=== PATIENT | male | born 1985 | race Caucasian/White ===

== ENCOUNTER 2020-04-29 15:37 | Emergency (ER) | payer OTHER ==
[~2020-04-29] VITALS: Ht 157.5 cm; Wt 48.5 kg
[~2020-04-29 15:37] MED LIST: HYDROCODONE-AC1 EAC5 PO; LEVE500; ONDA4ODT SL
[2020-04-29 16:39] LABS: BASOPHILS ABSOLUTE AUTO 0.03 K/mm3 (0.00-0.23); BASOPHILS PERCENT AUTO 1 % (0-2); EOSINOPHILS ABSOLUTE AUTO 0.02 K/mm3 (0.00-0.68); EOSINOPHILS PERCENT AUTO 0 % (0-6); Hematocrit 37.6 % (37.0-53.0); Hemoglobin 11.5 g/dL (13.5-17.5); IMMATURE GRAN PERCENT AUTO 0 % (0-1); LYMPHOCYTES ABSOLUTE AUTO 2.51 K/mm3 (0.84-5.20); LYMPHOCYTES PERCENT AUTO 56 % (21-46); MONOCYTES ABSOLUTE AUTO 0.21 K/mm3 (0.16-1.47); MONOCYTES PERCENT AUTO 5 % (4-13); Mean Corpuscular HGB 25.1 pg (26.0-34.0); Mean Corpuscular HGB Conc 30.6 g/dL (31.5-36.5); Mean Corpuscular Volume 82 fL (80-100); Mean Platelet Volume 9.9 fL (9.1-12.4); NEUTROPHILS PERCENT AUTO 38 % (41-73); Platelet Count 256 K/mm3 (150-400); RDW Coefficient Variation 17.5 % (11.7-14.2); RDW Standard Deviation 51.7 fL (35.1-46.3); Red Blood Cell Count 4.58 M/mm3 (4.30-5.90); White Blood Cell Count 4.47 K/mm3 (4.00-11.30)
[2020-04-29] MEDS ORDERED: VITAMIN B-1100 M1 PO (17:04)
[2020-04-29] MEDS ORDERED: Omeprazole20 M1 PO (17:04)
[2020-04-29] MEDS ORDERED: FOLI1 PO (17:04)
[2020-04-29] MEDS ORDERED: ZYPREXA2.5 MG PO (17:05)
[2020-04-29] MEDS ORDERED: OLAN5 PO (17:05)
[2020-04-29] MEDS ORDERED: PARO20 PO (17:06)
[2020-04-29] MEDS ORDERED: TRAZ50 PO (17:06)
[2020-04-29] MEDS ORDERED: REMERON15 MG PO (17:06)
[2020-04-29 17:10] LABS: Alanine Aminotransfer (ALT/SGP 21 U/L (12-78); Albumin, Blood 3.5 g/dL (3.4-5.0); Albumin/Globulin Ratio 0.8 (0.8-1.8); Alk Phos 66 U/L (50-136); Anion Gap 9 mmol/L (6-16); Aspartate Aminotrans (AST/SGOT 21 U/L (12-37); Bilirubin, Total 0.3 mg/dL (0.1-1.0); Blood Urea Nitrogen 12 mg/dL (8-24); Bun/Creatinine Ratio 17.3 (12.0-20.0); CO2, Blood 26 mmol/L (21-32); Calcium, Blood 8.4 mg/dL (8.5-10.1); Chloride, Blood 110 mmol/L (98-108); Creatinine, Blood 0.69 mg/dL (0.60-1.20); Ethanol (Alcohol), Blood, Med 220 mg/dL; Globulin, Blood 4.4 g/dL (2.2-4.0); Glomerular Filtration Rate >60 (60-); Glucose, Blood 83 mg/dL (70-99); Potassium, Blood 3.9 mmol/L (3.5-5.5); Sodium, Blood 145 mmol/L (136-145); Total Protein, Blood 7.9 g/dL (6.4-8.2)
[2020-04-29] MEDS ORDERED: FERSU300 PO (18:25)
[2020-04-29] MEDS ORDERED: Naltrexone HCl50 MG PO (18:25)
[2020-04-29] MEDS ORDERED: Depo-Testos200 MG/ML IM (18:26)
[2020-04-29 20:32] LABS: Source, Urine Clean Catch
[2020-04-29 20:38] LABS: Appearance, Urine Clear (Clear); Bilirubin, Urine Neg (Neg); Blood, Urine Neg (Neg); Color, Urine Yellow (P-Yellow); Glucose Qualitative, Urine Neg (Neg); Ketones, Urine Neg (Neg); Leukocyte Esterase, Urine Neg (Neg); Nitrite, Urine Neg (Neg); Protein, Urine Neg (Neg); Urobilinogen, Urine NORM (Normal)
[2020-04-29] MEDS ORDERED: ONDA4ODT MM (21:12)
[2020-04-29] MEDS ORDERED: Norco 5-325 Ta1 EACH PO (21:12)
[2020-04-29] MEDS ORDERED: KETO10 PO (21:12)
== END 2020-04-29 22:02 | disposition home or self-care (01) ==
LOC: ER 15:37
PROVIDERS: Physician Assistant
DX: F10.20 Alcohol dependence, uncomplicated (principal); K86.1 Other chronic pancreatitis; F17.200 Nicotine dependence, unspecified, uncomplicated; Z79.899 Other long term (current) drug therapy; Y90.7 Blood alcohol level of 200-239 mg/100 ml
CPT/HCPCS: 36415; 80053; 81003; 83690; 85025; 96361; 96374; 96375; 99285-25; A9270; A9270-GY; G0480; J1885; J2405; J3010; J7030

== ENCOUNTER 2020-05-03 11:39 | Inpatient (IN) | payer OTHER ==
[~2020-05-03] VITALS: Ht 157.5 cm; Wt 45.7 kg
[~2020-05-03 11:39] MED LIST changes: +Depo-Testos200 MG/ML IM; +FERSU300 PO; +FOLI1 PO; +KETO10 PO; +Naltrexone HCl50 MG PO; +Norco 5-325 Ta1 EACH PO; +OLAN5 PO; +ONDA4ODT MM; +Omeprazole20 M1 PO; +PARO20 PO; +REMERON15 MG PO; +TRAZ50 PO; +VITAMIN B-1100 M1 PO; +ZYPREXA2.5 MG PO
[2020-05-03 12:10] LABS: Calcium, Ionized (POC) 0.98 mmol/L (1.10-1.46); Chloride (POC) 106 mmol/L (98-108); Creatinine (POC) 0.9 mg/dL (0.8-1.3); Glucose (ISTAT POC) 90 mg/dL (70-99); Hemoglobin (POC) 14.6 g/dL (13.5-17.5); Potassium (POC) 3.9 mmol/L (3.5-5.5); Sodium (POC) 139 mmol/L (135-148); Total CO2 (POC) 12 mmol/L (21-32)
[2020-05-03 12:11] LABS: BASOPHILS ABSOLUTE AUTO 0.06 K/mm3 (0.00-0.23); BASOPHILS PERCENT AUTO 1 % (0-2); EOSINOPHILS PERCENT AUTO 0 % (0-6); Hematocrit 39.8 % (37.0-53.0); Hemoglobin 12.8 g/dL (13.5-17.5); IMMATURE GRAN ABSOLUTE AUTO 0.03 K/mm3 (0.00-0.10); IMMATURE GRAN PERCENT AUTO 0 % (0-1); LYMPHOCYTES ABSOLUTE AUTO 1.31 K/mm3 (0.84-5.20); LYMPHOCYTES PERCENT AUTO 11 % (21-46); MONOCYTES ABSOLUTE AUTO 0.99 K/mm3 (0.16-1.47); MONOCYTES PERCENT AUTO 8 % (4-13); Mean Corpuscular HGB 25.4 pg (26.0-34.0); Mean Corpuscular HGB Conc 32.2 g/dL (31.5-36.5); Mean Corpuscular Volume 79 fL (80-100); Mean Platelet Volume 9.7 fL (9.1-12.4); NEUTROPHILS ABSOLUTE AUTO 10.05 K/mm3 (1.96-9.15); NEUTROPHILS PERCENT AUTO 81 % (41-73); Platelet Count 480 K/mm3 (150-400); RDW Coefficient Variation 17.3 % (11.7-14.2); RDW Standard Deviation 49.6 fL (35.1-46.3); Red Blood Cell Count 5.04 M/mm3 (4.30-5.90); White Blood Cell Count 12.44 K/mm3 (4.00-11.30)
[2020-05-03 12:21] LABS: Alanine Aminotransfer (ALT/SGP 22 U/L (12-78); Albumin, Blood 3.9 g/dL (3.4-5.0); Albumin/Globulin Ratio 0.9 (0.8-1.8); Alk Phos 86 U/L (50-136); Anion Gap 21 mmol/L (6-16); Aspartate Aminotrans (AST/SGOT 47 U/L (12-37); Bilirubin, Total 0.5 mg/dL (0.1-1.0); Blood Urea Nitrogen 12 mg/dL (8-24); Bun/Creatinine Ratio 14.4 (12.0-20.0); CO2, Blood 15 mmol/L (21-32); Calcium, Blood 9.3 mg/dL (8.5-10.1); Chloride, Blood 104 mmol/L (98-108); Creatinine, Blood 0.83 mg/dL (0.60-1.20); Ethanol (Alcohol), Blood, Med 26 mg/dL; Globulin, Blood 4.5 g/dL (2.2-4.0); Glomerular Filtration Rate >60 (60-); Glucose, Blood 87 mg/dL (70-99); Magnesium, Blood 1.8 mg/dL (1.6-2.4); Sodium, Blood 140 mmol/L (136-145); Total Protein, Blood 8.4 g/dL (6.4-8.2); Troponin I <0.015 ng/mL (0.000-0.040)
[2020-05-03] MEDS ORDERED: Keppra750 MG PO (14:03)
[2020-05-03] MEDS ORDERED: TRAZ50 PO (14:10)
[2020-05-03] MEDS ORDERED: OLAN2.5 PO (14:11)
[2020-05-03] MEDS ORDERED: OLAN5 PO (14:11)
[2020-05-03] MEDS ORDERED: FERSU300 PO (14:11)
[2020-05-03] MEDS ORDERED: Mirtazapine45 M1 PO (14:11)
[2020-05-03] MEDS ORDERED: PAXIL40 MG PO (14:11)
[2020-05-03] MEDS ORDERED: Naltrexone HCl50 MG PO (14:12)
[2020-05-03 17:52] LABS: Anion Gap 7 mmol/L (6-16); Blood Urea Nitrogen 9 mg/dL (8-24); Bun/Creatinine Ratio 13.7 (12.0-20.0); CO2, Blood 27 mmol/L (21-32); Calcium, Blood 8.6 mg/dL (8.5-10.1); Chloride, Blood 105 mmol/L (98-108); Creatinine, Blood 0.66 mg/dL (0.60-1.20); Glomerular Filtration Rate >60 (60-); Glucose, Blood 151 mg/dL (70-99); Potassium, Blood 3.6 mmol/L (3.5-5.5); Sodium, Blood 139 mmol/L (136-145)
--- NOTE | 2020-05-03 18:41 | NUR ---
NO ACUTE EVENTS THIS HALF OF SHIFT. PATIENT ARRIVED FROM ED. PATIENT ENDORSES 10/10 PAIN, NAUSEA, VISIBLE TREMORS. PATIENT HYPERTENSIVE, DENIES CHEST PAIN/PRESSURE. DR. VAUGHN CALLED FOR ADDITIONAL PAIN/NAUSEA CONTROL, ORDERS GIVEN FOR PHENERGAN AND DILAUDID. PATIENT ENDORSES PAIN RELIEF FROM DILAUDID. BANANA BAG RUNNING. [facility].
--- NOTE | 2020-05-03 22:54 | NUR ---
2105 PT RESTING COMFORTABLY IN BED; ALERT AND ORIENTED X 4; TALKING CALMLY WITH THIS NURSE.
[2020-05-04 00:36] LABS: Source, Urine Clean Catch
[2020-05-04 00:41] LABS: Appearance, Urine Clear (Clear); Bilirubin, Urine Neg (Neg); Blood, Urine Neg (Neg); Color, Urine Yellow (P-Yellow); Glucose Qualitative, Urine Neg (Neg); Ketones, Urine 3+ (Neg); Leukocyte Esterase, Urine Neg (Neg); Nitrite, Urine Neg (Neg); Protein, Urine Neg (Neg); Urobilinogen, Urine NORM (Normal)
[2020-05-04 02:42] LABS: U Amphetamine Screen Not Detected; U Barbituate Screen Not Detected; U Cocaine Screen Not Detected; U Methadone Screen Not Detected; U Methamphetamine Screen Not Detected
[2020-05-04 02:43] LABS: U Benzodiazapine Screen DETECTED; U Buprenorphine Screen Not Detected; U Cannabinoids Screen DETECTED; U Opiates Screen DETECTED; U Oxycodone Screen Not Detected; U Phencyclidine Screen Not Detected; U Propoxyphene Screen Not Detected
--- NOTE | 2020-05-04 03:17 | NUR ---
SHIFT SUMMARY: 34 Y/O MALE RESTED COMFORTABLY ALL SHIFT; PT OCCASIONALLY C/O ABD PAIN RATED 8/10 WITH DILAUDID 0.5MG IVP GIVEN WITH RELIEFT FELT; TELEMETRY REFLECTS NSR (PT DID HAVE EPISODES ST ELEVATION AT TIMES THROUGHOUT SHIFT--DR CHARLES NOTIFIED WITH NO ORDERS); DENIES CHEST PAIN; ALERT AND ORIENTED X 4; CIWA 8; PT BEVERAGE OF CHOICE IS BEER; PT IS RETIRED [employer] MEDICALLY RATED AT 100% DISABILITY; PT VOICED HE LIVES IN [place] WITH AND 4 KIDS; PT NOTED TO HAVE INCONTINENCE EPISODES AT TIMES WITH PATIENT VOICING RECENT ISSUES; BED LOW POSITION WITH CALL LIGHT AT SIDE.
[2020-05-04 05:13] LABS: Hematocrit 35.6 % (37.0-53.0); Mean Corpuscular HGB 25.3 pg (26.0-34.0); Mean Corpuscular HGB Conc 30.9 g/dL (31.5-36.5); Mean Corpuscular Volume 82 fL (80-100); Mean Platelet Volume 10.1 fL (9.1-12.4); Platelet Count 300 K/mm3 (150-400); RDW Coefficient Variation 17.4 % (11.7-14.2); Red Blood Cell Count 4.34 M/mm3 (4.30-5.90); White Blood Cell Count 7.09 K/mm3 (4.00-11.30)
[2020-05-04 05:53] LABS: Alanine Aminotransfer (ALT/SGP 17 U/L (12-78); Albumin, Blood 3.2 g/dL (3.4-5.0); Albumin/Globulin Ratio 0.8 (0.8-1.8); Alk Phos 73 U/L (50-136); Anion Gap 7 mmol/L (6-16); Aspartate Aminotrans (AST/SGOT 39 U/L (12-37); Bilirubin, Total 0.7 mg/dL (0.1-1.0); Blood Urea Nitrogen 5 mg/dL (8-24); Bun/Creatinine Ratio 7.1 (12.0-20.0); CO2, Blood 28 mmol/L (21-32); Calcium, Blood 8.7 mg/dL (8.5-10.1); Chloride, Blood 106 mmol/L (98-108); Glomerular Filtration Rate >60 (60-); Glucose, Blood 78 mg/dL (70-99); Potassium, Blood 3.6 mmol/L (3.5-5.5); Sodium, Blood 141 mmol/L (136-145); Total Protein, Blood 7.2 g/dL (6.4-8.2)
--- NOTE | 2020-05-04 08:07 | NUR ---
ASSUMED PATIENT CARE. PATIENT RESTING COMFORTABLY IN BED, NO SIGNS OF ACUTE DISTRESS, WCTM.
--- NOTE | 2020-05-04 18:45 | NUR ---
PATIENT ACTIVELY WITHDRAWING FROM ALCOHOL, CIWA RANGED FROM 14-19 THIS SHIFT. PATIENT COMPLAINS OF VISUAL/AUDITORY HALLUCINATIONS, NAUSEA/VOMITING T/O SHIFT. PHENERGAN/ZOFRAN ON BOARD, DILAUDID MINIMALLY EFFECTIVE FOR ABD PAIN FROM PANCREATITIS PER PATIENT REPORT. PATIENT ABLE TO AMBULATE TO BATHROOM WITH STANDBY ASSIST.
--- NOTE | 2020-05-04 21:20 | NUR ---
THIS NURSE EDUCATED PATIENT ON NEED ETOH CESSATION BY GOING COLD [place] AND ATTENDING WEEKLY ALCOHOLIC ANONYMOUS CLASSES SOMEPLACE NEAR CURRENT RESIDENCE. PT VOICED THAT HE UNABLE TO FIND WORK PAST 2 YEARS WITH PATIENT NOTED TO BE WEARING A ROMANIAN COLORED HAIRCUT WITH THIS NURSE ENCOURAGING PATIENT TO LOOK AT HOW YOU PRESENT YOURSELF TO AN PROSPECTIVE EMPLOYER AND ADJUST ACCORDINGLY TO MEET FUTURE NEEDS WITH ACKNOWLEDGEMENT NOTED. PTS WILL REQUIRE MORE REINFORCEMENT FROM NURSING STAFF.
--- NOTE | 2020-05-05 03:42 | NUR ---
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
[2020-05-05 03:55] LABS: Hematocrit 33.5 % (37.0-53.0); Hemoglobin 10.3 g/dL (13.5-17.5); Mean Corpuscular HGB 25.5 pg (26.0-34.0); Mean Corpuscular HGB Conc 30.7 g/dL (31.5-36.5); Mean Corpuscular Volume 83 fL (80-100); Platelet Count 252 K/mm3 (150-400); RDW Coefficient Variation 17.2 % (11.7-14.2); RDW Standard Deviation 52.1 fL (35.1-46.3); Red Blood Cell Count 4.04 M/mm3 (4.30-5.90); White Blood Cell Count 5.42 K/mm3 (4.00-11.30)
[2020-05-05 04:22] LABS: Anion Gap 5 mmol/L (6-16); Blood Urea Nitrogen 2 mg/dL (8-24); Bun/Creatinine Ratio 3.1 (12.0-20.0); CO2, Blood 29 mmol/L (21-32); Calcium, Blood 8.5 mg/dL (8.5-10.1); Chloride, Blood 108 mmol/L (98-108); Creatinine, Blood 0.65 mg/dL (0.60-1.20); Glomerular Filtration Rate >60 (60-); Glucose, Blood 123 mg/dL (70-99); Magnesium, Blood 2.1 mg/dL (1.6-2.4); Phosphorus, Blood 1.9 mg/dL (2.5-4.9); Potassium, Blood 3.3 mmol/L (3.5-5.5); Sodium, Blood 142 mmol/L (136-145)
--- NOTE | 2020-05-05 07:18 | NUR ---
ASSUMED PATIENT CARE. PATIENT RESTING COMFORTABLY IN BED, CONVERSING WITH NURSING STAFF. NO SIGNS OF ACUTE DISTRESS, WCTM.
--- NOTE | 2020-05-05 14:06 | NUR ---
PATIENT AGREED TO ATTEMPT ADVANCING THE DIET TOLERATED PER ORDERS FROM DR. VAUGHN, PREMEDICATED IN MORNING WITH ZOFRAN/PHENERGAN, PO FLUIDS AND CRACKERS TALEN BY PATIENT. PATIENT VOMITED STOMACH CONTENTS. PATIENT ENDORSED WISHING TO MOVE FORWARD WITH DOBHOFF TUBE FEEDS. RISKS AND BENEFITS DISCUSSED THIS MORNING WITH DR. VAUGHN. TUBE PLACED BY THIS RN, PATIENT TOLERATED WELL. NOW PATIENT ENDORSES WANTING TO TAKE TUBE OUT.
--- NOTE | 2020-05-05 14:47 | NUR ---
PATIENT DISCUSSED WITH THIS RN BENEFITS OF KEEPING DOBHOFF IN PLACE AND TUBE FEEDS ORDERED BY DR. VAUGHN. THIS RN EDUCATED ON NEED FOR CALORIC INTAKE PATIENT IS INABLE TO TOLERATE PO INTAKE AT THIS TIME AND HAS BEEN UNABLE TO EAT FOR PAST FEW DAYS ENDORSED BY PATIENT. PATIENT AGREED TO MOVE FORWARD WITH TUBE FEED. DR. CHEN CALLED BY THIS RN TO VERIFY TUBE PLACEMENT, PER DR. CHEN TERMINATED IN STOMACH. DISCUSSED BY THIS RN AND CHARGE NURSE, BETSEY C ARCHITECT TUBE ADDITIONAL 15 CM FROM 55 TO 70. WILL VERIFY PLACEMENT IN DUODENUM WITH CXR PER DR. VAUGHN INSTRUCTIONS TO TERMINATE IN DUODENUM DUE TO PANCREATITIS.
--- NOTE | 2020-05-05 18:25 | NUR ---
NO ACUTE EVENTS THIS SHIFT. DOBHOFF PLACED FOR TUBE FEED, VERIFIED BY RADIOLOGIST DR. CHEN PLACED IN STOMACH. TUBE ADVANCED ADDITIONAL 15 CM, DR. VAUGHN NOTIFIED, REGLAN ORDERED AND GIVEN, PLAN IS FOR CLEAR LIQUIDS TOLERATED OVERNIGHT, WITH VERIFICATION CXR IN MORNING FOR HOPEFUL MIGRATION INTO DUODENUM. HOLD TUBE FEED UNTIL AFTER CXR IN MORNING AND DUODENAL PLACEMENT VERIFICATION. PER DR. VAUGHN OK TO CONTINUE NS AT 100 ML/HR AND THIAMINE UNTIL TUBE FEEDS ARE STARTED. PATIENT CIWA RANGE THIS SHIFT FROM 6-9. NAUSEA MANAGED WITH ZOFRAN/PHENERGAN THIS SHIFT.
--- NOTE | 2020-05-05 19:21 | NUR ---
pt arrived to the medical floor from the pcu, a/ox3, appears to be breathing easily on ra, dohoff tube secure, pt requested something to eat advised pt against that for now due to risk of vomiting, pt wa oriented to the room layout and call system, call light in reach
--- NOTE | 2020-05-05 19:30 | NUR ---
PT ARRIVED ON MEDICAL FLOOR FROM PCU AROUND 1909. AA0X3. NO C/O PAIN OR NAUSEA. UP WALKING AROUND ROOM.
--- NOTE | 2020-05-05 19:39 | NUR ---
DINAOFF UNINTENTIONALLY PULLED OUT BY PT AT THIS TIME. PT STATES HE MOVED HIS BLANKETS DOWN AND IT CAME ALL THE WAY OUT.
--- NOTE | 2020-05-05 20:06 | NUR ---
PT PULLED OUT NG TUBE, NURSE NOTIFIED
--- NOTE | 2020-05-05 23:36 | NUR ---
CALL TO DR. WHITE AROUND 2200. REPORTED PT ACCIDENTAL REMOVAL OF DOBHOFF AND REFUSAL TO REPLACE THE TUBE. PT REQUESTING TO ADAT. DR. WHITE OKAYED ADVANCING TO FULL LIQUID DIET AT THIS TIME. PT HAS HAD JELLO AND POPSICLES AND REPORTS NO NAUSEA, NO VOMITING. CONT W/ABD PAIN AND REQUESTING DILAUDID Q 2HRS SO FAR.
--- NOTE | 2020-05-06 04:46 | NUR ---
SHIFT SUMMARY: VSS. AFEB. AAOX4. PT REQUESTING DILAUDID FOR ABD PAIN MANAGEMENT. STATES THAT IT IS EFFECTIVE. ABD SOFT, TENDER THROUGHOUT, NON-DISTENDED. HYPOACTIVE BT. REPORTING HUNGER. ULI CLEAR LIQUIDS WELL AT THIS TIME. DENIES N/V. DOBHOFF REMAINS OUT, PT DOES NOT WANT IT REPLACED. CIWA 8 AND 7. LIBRIUM GIVEN X1 WITH GOOD EFFECT. ATIVAN X1 FOR ANXIETY. PT IN GOOD SPIRITS. IV BANANA BAG AND SALINE PER ORDERS. NO ACUTE CHANGES AT THIS TIME. WILL CONT TO MONITOR.
[2020-05-06 05:45] LABS: Magnesium, Blood 2.1 mg/dL (1.6-2.4)
[2020-05-06 05:49] LABS: Anion Gap 5 mmol/L (6-16); CO2, Blood 28 mmol/L (21-32); Calcium, Blood 8.4 mg/dL (8.5-10.1); Chloride, Blood 112 mmol/L (98-108); Creatinine, Blood 0.68 mg/dL (0.60-1.20); Glomerular Filtration Rate >60 (60-); Glucose, Blood 95 mg/dL (70-99); Phosphorus, Blood 2.9 mg/dL (2.5-4.9); Potassium, Blood 3.6 mmol/L (3.5-5.5); Sodium, Blood 145 mmol/L (136-145); Triglycerides 105 mg/dL (30-140)
[2020-05-06 06:08] LABS: Blood Urea Nitrogen <1 mg/dL (8-24); Bun/Creatinine Ratio Unable to Calculate (12.0-20.0)
--- NOTE | 2020-05-06 17:48 | NUR ---
PATIENT IS ALERT AND ORIENTED AND COOPERATIVE WITH CARE. HE HAS C/O ABDOMINAL PAIN THROUGHOUT THE DAY, TREATED PER EMAR WITH IV AND PO DILAUDID. PATIENT C/O NAUSEA/VOMITING TWICE THIS AFTERNOON, TREATED WITH IV PHENERGEN. PATIENT C/O ANXIETY, TREATED WITH IV ATIVAN. PATIENT EXPRESSED INTEREST IN ADVANCING DIET TODAY AND TOLERATING PO PAIN MEDICATION IN HOPES HE COULD GO HOME TOMORROW. BUT UNFORTUNATELY HE STRUGGLED WITH THAT TODAY. PATIENT IS INDEPENDENT TO THE BATHROOM AND CALLS APPROPRIATELY. WILL CONTINUE TO MONITOR
--- NOTE | 2020-05-07 05:26 | NUR ---
TENTS ASSEMBLER SUMMARY PT WAS UP MOST OF THE NIGHT REQUESTING PAIN MEDICATION Q2H. PT HAD ONE EPISODE OF EMESIS DURING THE NIGHT AND WAS GIVEN PHENERGAN WHICH BROUGHT RELIEF FOR REST OF SHIFT. PT DID NOT WANT PO PAIN MEDICATION REQUESTING THAT HE NEEDED IV DILUADID AND ATIVAN AT THE SAME TIME. PT'S CIWA REMAINED A 6 AND DISPLAYED SOME INCREASED SWEATING DURING THE MIDDLE OF THE NIGHT. PT DID DRINK CLEAR SODA AND WATER AND TOLERATED THEM WELL. PT STATES A MOTIVATION TO INCREASE PO INTAKE SO HE CAN BE DISCHARGED AND GO TO REHAB.
[2020-05-07 05:36] LABS: Hematocrit 30.5 % (37.0-53.0); Hemoglobin 9.4 g/dL (13.5-17.5); Mean Corpuscular HGB Conc 30.8 g/dL (31.5-36.5); Mean Corpuscular Volume 84 fL (80-100); Mean Platelet Volume 10.4 fL (9.1-12.4); Platelet Count 247 K/mm3 (150-400); RDW Coefficient Variation 17.2 % (11.7-14.2); RDW Standard Deviation 53.2 fL (35.1-46.3); Red Blood Cell Count 3.62 M/mm3 (4.30-5.90); White Blood Cell Count 2.85 K/mm3 (4.00-11.30)
[2020-05-07 06:05] LABS: Magnesium, Blood 1.9 mg/dL (1.6-2.4)
[2020-05-07 06:15] LABS: Anion Gap 4 mmol/L (6-16); Blood Urea Nitrogen <1 mg/dL (8-24); Bun/Creatinine Ratio Unable to Calculate (12.0-20.0); CO2, Blood 32 mmol/L (21-32); Calcium, Blood 8.4 mg/dL (8.5-10.1); Chloride, Blood 107 mmol/L (98-108); Creatinine, Blood 0.66 mg/dL (0.60-1.20); Glomerular Filtration Rate >60 (60-); Glucose, Blood 86 mg/dL (70-99); Phosphorus, Blood 4.2 mg/dL (2.5-4.9); Potassium, Blood 3.2 mmol/L (3.5-5.5); Sodium, Blood 143 mmol/L (136-145)
--- NOTE | 2020-05-07 08:05 | NUR ---
DR. APPIAH NOTIFIED OF RED EMESIS, GI CONSULT IS TO BE ORDERED.
[2020-05-07] MEDS ORDERED: ONDA4ODT MM (16:35)
[2020-05-07] MEDS ORDERED: PANT40 PO (16:36)
[2020-05-07] MEDS ORDERED: Percocet 5-3251 EACH PO (16:36)
== END 2020-05-07 17:08 | disposition home or self-care (01) | DRG 439 ==
LOC: ER 11:39 → MEDS 14:09 → PCU 14:09 → MEDS 05-05 19:14 → ENPENDDIS 05-07 16:29 → MEDS 05-07 17:08
PROVIDERS: Emergency Medicine; Nurse Practitioner Acute Care; ADMIT Internal Medicine
DX: K85.20 Alcohol induced acute pancreatitis without necrosis or infection (principal); R65.10 Systemic inflammatory response syndrome (SIRS) of non-infectious origin without acute organ dysfunction; E87.2 Acidosis; K92.0 Hematemesis; D64.9 Anemia, unspecified; F43.12 Post-traumatic stress disorder, chronic; F41.8 Other specified anxiety disorders; F64.0 Transsexualism; E87.6 Hypokalemia; F10.20 Alcohol dependence, uncomplicated; F17.210 Nicotine dependence, cigarettes, uncomplicated; K21.9 Gastro-esophageal reflux disease without esophagitis
CPT/HCPCS: 36415; 71045; 74160; 76705; 76770; 80047; 80048; 80053; 81003; 82607; 83690; 83735; 84100; 84478; 84484; 85014; 85025; 85027; 93005; 93010; 96361; 96365; 96375; 96376; 99285-25; A9270; A9270-GY; C9113; G0480; J1170; J1650; J2060; J2270; J2405; J2550; J2765; J3010; J3411; J3475; J7030; J7042; J7060; J7120; Q9967

== ENCOUNTER 2020-11-30 19:04 | Emergency (ER) | payer OTHER ==
[~2020-11-30] VITALS: Ht 157.5 cm; Wt 49.9 kg
== END 2020-11-30 21:48 | disposition home or self-care (01) ==
LOC: ER 19:04
DX: R10.9 Unspecified abdominal pain (principal); G89.29 Other chronic pain; F10.20 Alcohol dependence, uncomplicated; F17.200 Nicotine dependence, unspecified, uncomplicated; Z79.899 Other long term (current) drug therapy
CPT/HCPCS: 80053; 83690; 83735; 85025; 96374; 96375; 99285-25; G0480; J1200; J1630; J1885; J7030